=== PATIENT | male | born 1980 | race African-American/Black ===

== ENCOUNTER 2016-12-15 14:16 | Inpatient (IN) ==
[2016-12-15] MEDS ORDERED: DIPH/TET/ACEL PERT BOOSTER VACCINE 0.5 ML VIAL IM ONE ×2 (14:18→15:06)
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
[2016-12-15 14:40] LABS: Basophils % 0.5 % (0.0-0.8); Eosinophils # 0.3 10*3/uL (0.0-0.87); Hematocrit 42.2 VOL% (42.0-52.0); Hemoglobin 14.7 GM/DL (14.0-18.0); Immature Granulocytes % 0.3 %; Immature Granulocytes Absolute 0.02 #; Lymphocytes # 1.4 10*3/uL (1.4-4.0); Lymphocytes % 22.6 % (21.2-54.2); Mean Corpuscular HGB Conc 34.8 GM/DL (32-36); Mean Corpuscular Hemoglobin 34 PG (27-34); Mean Corpuscular Volume 96.8 FL (87-102); Mean Platelet Volume 10.7 FL (9.6-12.0); Monocytes # 0.7 10*3/uL (0.11-0.8); Monocytes % 11.7 % (1.7-12.7); Neutrophils # 3.9 10*3/uL (1.4-7.4); Neutrophils % 60.9 % (38.7-73.9); Platelet Count 258 T/CUMM (130-400); Red Blood Count 4.36 MC/CUMM (3.8-5.5); Red Cell Distribution Width 11.9 % (9.3-17.3); White Blood Count 6.3 T/CUMM (4-12)
[2016-12-15 14:45] LABS: PT Patient Result 10.9 SECS; Partial Thromboplastin Time 28.7 SECS (0-40)
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
[2016-12-15 15:04] LABS: Apearance,Urine CLEAR (Clear); Bilirubin,Urine Negative (Negative); Blood, Urine Negative (Negative); Glucose,Urine (UA) Negative (Negative); Ketones,Urine Negative (Negative); Mucus,Urine Occasional /LPF (Occasional); Nitrite,Urine Negative (Negative); Protein,Urine Negative; RBC,Urine 6 /HPF (0-4); Squamous Epithelial Cell,Urine Occasional /HPF (0-10); Urine Color Yellow (Yellow); Urine Specific Gravity 1.031 (1.001-1.035); Urine Urobilinogen < 2.0 EU/DL (0.2-1.0); WBC,Urine 5 /HPF (0-6)
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
[2016-12-15 15:18] LABS: Alanine Aminotransferase 46 U/L (16-61); Albumin 3.6 G/DL (3.4-5.0); Alkaline Phosphatase 109 U/L (45-117); Amylase 52 U/L (25-115); Aspartate Amino Transferase 32 U/L (0-37); Blood Urea Nitrogen 14 MG/DL (7-18); Calcium 9.2 MG/DL (8.5-10.1); Glucose 103 MG/DL (74-106); Osmolality,Calculated 277.5 MOS/KG (273-304); Potassium 4.8 MMOL/L (3.5-5.1); Sodium 139 MMOL/L (136-145)
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
[2016-12-15 15:26] LABS: Barbiturates Screen,Urine Negative (Negative); Benzodiazepines Screen,Urine Negative (Negative); Cannabinoid Screen,Urine Negative (Negative); Opiate Screen,Urine Negative (Negative); Phencyclidine Screen,Urine Negative (Negative)
--- NOTE | 2016-12-15 15:27 | XRay Report ---
Portable chest Date: 12/15/2016 Clinical history: Chest pain Comparison: None Technique: Portable AP sitting chest Findings: The heart is normal in size. No pneumothorax with minimal atelectasis at the lung bases. Unremarkable mediastinum and osseous structures. Impression: Minimal atelectasis at the lung bases. PROCEDURE INTERPRETED AT [facility] DEPARTMENT OF RADIOLOGY Final Report Signed by: Dr. Edita Su
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
[2016-12-15] MEDS ORDERED: ONDANSETRON 4 MG/2 ML VIAL IV PRN (16:06)
[2016-12-15] MEDS ORDERED: ALUMINUM/MAGNES/SIMETH MAX STR 30 ML UDCUP PO PRN (16:06)
[2016-12-15] MEDS ORDERED: HYDROmorphone 2 MG/1 ML VIAL IV PRN (16:06)
[2016-12-15] MEDS ORDERED: ACETAMINOPHEN 325 MG TABLET PO PRN (16:06)
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
[2016-12-15] MEDS: DEXTROSE 5% NACL 0.45% 1,000 ML IV SCH (16:30)
[2016-12-15] MEDS: KETOROLAC 15 MG/1 ML VIAL IV SCH ×2 (17:31→23:13)
[2016-12-15] MEDS: DOCUSATE SODIUM 100 MG CAPSULE PO SCH (21:11)
[2016-12-16] MEDS: DEXTROSE 5% NACL 0.45% 1,000 ML IV SCH ×2 (00:30→10:57)
[2016-12-16] MEDS: KETOROLAC 15 MG/1 ML VIAL IV SCH ×2 (05:37→10:58)
[2016-12-16 06:39] LABS: Basophils % 0.4 % (0.0-0.8); Eosinophils # 0.2 10*3/uL (0.0-0.87); Eosinophils % 2.9 % (0.00-10.9); Hematocrit 38.9 VOL% (42.0-52.0); Hemoglobin 13.2 GM/DL (14.0-18.0); Immature Granulocytes % 0.2 %; Immature Granulocytes Absolute 0.02 #; Lymphocytes # 1.2 10*3/uL (1.4-4.0); Lymphocytes % 14.8 % (21.2-54.2); Mean Corpuscular HGB Conc 33.9 GM/DL (32-36); Mean Corpuscular Hemoglobin 33 PG (27-34); Monocytes # 0.9 10*3/uL (0.11-0.8); Monocytes % 11.2 % (1.7-12.7); Neutrophils # 5.8 10*3/uL (1.4-7.4); Neutrophils % 70.5 % (38.7-73.9); Platelet Count 254 T/CUMM (130-400); Red Blood Count 4.01 MC/CUMM (3.8-5.5); Red Cell Distribution Width 11.8 % (9.3-17.3); White Blood Count 8.3 T/CUMM (4-12)
[2016-12-16 07:17] LABS: Albumin 3.2 G/DL (3.4-5.0); Bilirubin,Total 0.7 MG/DL (0.2-1.0); Calcium 8.8 MG/DL (8.5-10.1); Osmolality,Calculated 277.4 MOS/KG (273-304); Potassium 4.2 MMOL/L (3.5-5.1); Total Protein 6.3 G/DL (6.4-8.3)
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
[2016-12-16] MEDS ORDERED: PANTOPRAZOLE 40 MG TABLET PO SCH (09:00)
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
[2016-12-16] MEDS: DOCUSATE SODIUM 100 MG CAPSULE PO SCH (09:50)
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
[2016-12-16 10:47] VITALS: BP 117/64
== END 2016-12-16 11:20 | disposition home or self-care (01) | DRG 159 ==
LOC: N.ED 14:16 → N.3E 16:45 → N.EDINP 16:49 → N.3E 16:52
PROVIDERS: ADMIT Specialist; ATTEND Specialist